=== PATIENT | female | born 1965 | race African-American/Black ===

== ENCOUNTER 2018-12-06 05:48 | Emergency (ER) | payer OTHER ==
[~2018-12-06] VITALS: Ht 167.6 cm; Wt 82.6 kg
[2018-12-06 05:49] VITALS: BP 134/83
--- NOTE | 2018-12-06 05:49 | NUR ---
TO BED # 11 AMBULATORY
--- NOTE | 2018-12-06 06:00 | NUR ---
PT BIB FRIEND C/O CONGESTION AND DIFFICULTY BREATHING. PT STATES DIFFICULTY BREATHING SINCE MAY 2018, PT STATES SHE HAD PNA, FLU, BRONCHITIS FROM MAY UNTIL NOW; PT STATES SHE IS NOT GETTING BETTER. PT ACTING APPROPRIATLY, SPEAKING IN CLEAR AND COMPLETE SENTENCES. PT STATES 0/10 PAIN, DISCOMFORT W/ BREATHING AND TALKING. +NASAL CONGESTION, +DRY COUGH, BREATHING EQUAL W/ AUDIBLE WHEEZING LUNG SOUNDS THROUGH OUT. PT IN GOWN, IN BED; BED IN LOWER LOCKED POSITON, POSITION FOR COMFORT. PT PLACED ON BED SIDE PULSE OX. ER MD AWARE OF PT STATUS. WILL CONTINUE TO MONITOR. PMH: HTN, ALBATION X2 YRS AGO
[2018-12-06] MEDS ORDERED: predniSONE 20 MG TAB PO ONE (06:10)
[2018-12-06] MEDS ORDERED: ALBUTEROL 0.083% 2.5 MG/3 ML NEBU INH ONE ×2 (06:10→06:55)
[2018-12-06] MEDS ORDERED: EPINEPHrine 1:1000 - 1 MG/ML AMP SUBQ ONE (06:10)
--- NOTE | 2018-12-06 06:18 | NUR ---
X-RAY AT BEDSIDE.
--- NOTE | 2018-12-06 06:20 | NUR ---
[facility] GIVEN ORDERED ENCOURAGED PATIENT FOR INTERMITTENT DEEP BREATHING DURING THERAPY
--- NOTE | 2018-12-06 06:22 | NUR ---
RT AT BEDSIDE FOR BREATHING TX.
[2018-12-06] MEDS ORDERED: ALBUTEROL SULFATE/IPRATROPIU 3 ML SOL IH ONE (06:55)
--- NOTE | 2018-12-06 07:05 | NUR ---
Pt report given to CALEB Mejias. Patient acting approprialty, VSS. Transfer of care at this time.
--- NOTE | 2018-12-06 07:08 | NUR ---
Received care from Meryl. Pt's VSS, full-clear speech. Pt's respiratory effort and depth normal. No accessory muscle use. Pt's lungs auscultated wheezing breathing sounds on upper lobes, and chest expands symmetrically. is at bedside. RT has been called for respiratory treatment.
--- NOTE | 2018-12-06 07:27 | NUR ---
FOLLOW UP [facility] GIVEN ORDERED
--- NOTE | 2018-12-06 07:28 | NUR ---
Breathing treatment administered at bedside by respiratory therapist.
--- NOTE | 2018-12-06 07:30 | NUR ---
Dr. Veliz evaluating patient at bedside.
[2018-12-06 08:08] VITALS: BP 134/89
--- NOTE | 2018-12-06 08:08 | NUR ---
Patient discharged with v/s stable. Written and verbal after care instructions given and explained. Patient alert, oriented and verbalized understanding of instructions. Ambulatory with steady gait. All questions addressed prior to discharge. ID band removed. Patient advised to follow up with PMD. Rx of Tessalon Perles, Prednisone, and Albuterol given. Patient educated on indication of medication including possible reaction and side effects. Opportunity to ask questions provided and answered.
== END 2018-12-06 08:08 | disposition home or self-care (01) ==
LOC: MED 05:48
DX: J45.909 Unspecified asthma, uncomplicated (principal); I10 Essential (primary) hypertension; Z88.0 Allergy status to penicillin
CPT/HCPCS: 71045; 94640; 96372; 99285; J0171; J7512; J7613; J7620; Q0092

== ENCOUNTER 2019-06-07 17:33 | Emergency (ER) | payer OTHER ==
[~2019-06-07] VITALS: Ht 165.1 cm; Wt 84.4 kg
--- NOTE | 2019-06-07 17:44 | NUR ---
PT TAKEN TO BED 10.
[2019-06-07 17:50] VITALS: BP 143/77
--- NOTE | 2019-06-07 18:10 | NUR ---
54 Y/O F C/O PAIN 8/10 ON THE LEFT SIDE OF THE CHEST WITH COUGHING. PATIENT STATES IT FEELS LIKE A CRAMP IN THE LEFT CHEST WHEN SHE COUGHS OR BREATHS. PATIENT COUGHS UP YELLOW/BROWN FLEM. PATIENT HAS BEEN HAVING LUNG ISSUES FOR A YEAR AND SEES A BELT CLEANER. HX: LEFT HIP REPLACEMENT, ABLATION OF THE HEART R/T AFIB, HYSTERECTOMY, SEASONAL ALLERGIES. ALLERGIES: PENECILLIN
[2019-06-07] MEDS ORDERED: ALBUTEROL SULFATE/IPRATROPIU 3 ML SOL IH ONE (18:15)
[2019-06-07] MEDS ORDERED: predniSONE 20 MG TAB PO ONE (18:15)
[2019-06-07] MEDS ORDERED: ALBUTEROL 0.083% 2.5 MG/3 ML NEBU INH ONE (18:15)
--- NOTE | 2019-06-07 19:07 | NUR ---
Pt report given to CALEB PARNELL. Transfer of care at this time.
--- NOTE | 2019-06-07 19:08 | NUR ---
RECEIVED REPORT FROM CALEB JAIN. TRANSFER OF CARE AT THIS TIME.
[2019-06-07 19:16] VITALS: BP 143/77
--- NOTE | 2019-06-07 19:16 | NUR ---
Patient discharged with v/s stable. Written and verbal after care instructions given and explained. Patient alert, oriented and verbalized understanding of instructions. Ambulatory with steady gait. All questions addressed prior to discharge. ID band removed. Patient advised to follow up with PMD. Rx of prednisone, motrin and norco given. Patient educated on indication of medication including possible reaction and side effects. Opportunity to ask questions provided and answered.
== END 2019-06-07 19:16 | disposition home or self-care (01) ==
LOC: MED 17:33
DX: R05 Cough (principal); R06.02 Shortness of breath; R07.89 Other chest pain; I10 Essential (primary) hypertension; Z88.0 Allergy status to penicillin; Z90.710 Acquired absence of both cervix and uterus
CPT/HCPCS: 94640; 99283; J7512; J7613; J7620